=== PATIENT | male | born 1985 | race Caucasian/White ===

== ENCOUNTER 2019-03-31 17:12 | Emergency (ER) | payer MEDICAID, OTHER, SELFPAY ==
[~2019-03-31] VITALS: Ht 172.7 cm; Wt 71.1 kg
[2019-03-31 17:14] VITALS: BP 99/60
== END 2019-03-31 18:32 | disposition home or self-care (01) ==
LOC: ED 18:05
DX: H10.022 Other mucopurulent conjunctivitis, left eye (principal)
CPT/HCPCS: 99283